=== PATIENT | male | born 2000 | race Caucasian/White ===

== ENCOUNTER 2024-05-05 12:42 | Emergency (ER) | payer OTHER, BC, SELFPAY ==
[2024-05-05 12:55] VITALS: BP 120/75; PULSE 64; TEMP 36.6; O2SAT 98; BMI 30.3
--- NOTE | 2024-05-05 16:14 | W.ED.EYEPROB ---
HPI - Eye Problem General: Chief complaint: Eye Problems Stated complaint: L eye pain Time Seen by Provider: 05/05/24 15:55 History of Present Illness: 24-year-old male patient comes in today with foreign body in the left eye. Patient reports for about 1 week he has had a discomfort of a foreign body in his eye. Patient was seen in the emergency department at [facility] for removal of eye foreign body at that time. Patient was discharged home with recommendation for follow-up. Patient states that he continues to have the discomfort in his eye but has had no improvement of symptoms. Patient appears nontoxic. 1 can visualize the foreign body in the left eye at the 9 o'clock position at the edge of the iris. Related Data Allergies Allergy/AdvReac Type Severity Reaction Status Date / Time No Known Allergies Allergy Verified 05/05/24 13:02 Review of Systems General: Reports: 10 or more systems reviewed and unremarkable except in HPI and below Physical Exam Const: COMMON NORMALS: alert HENMT: HEAD & SCALP: normal to inspection Eye: COMMON NORMALS: Equal, round and reactive pupils present, EOMs intact bilaterally and conjunctivae normal CONJUNCTIVA: Yes conjunctivae normal CORNEA: Yes other (Foreign body, speck of brown material, 9:00 left eye) PUPIL: Yes Equal, round and reactive pupils present Neck/C-Spine: COMMON NORMALS: full ROM Resp: COMMON NORMALS: normal respiratory effort Cardio: COMMON NORMALS: regular rate RATE: regular rate GI: COMMON NORMALS: non-tender Extremity: COMMON NORMALS: capillary refill normal Neuro: SENSORIUM/ORIENTATION: Yes alert Skin: COMMON NORMALS: turgor normal GENERAL SKIN EXAM: turgor normal Procedures FB Removal Eye Location: eye (L) Topical anesthetic used: tetracaine Foreign body: metal Evidence of corneal penetration: No Technique: needle Procedure performed under: direct visualization with magnification Post-procedure medication: ophthalmic antibiotic Patient tolerated procedure: well Complications: other (No complications) Course Vital Signs: Vital signs: Vital Signs Temperature 97.9 F 05/05/24 12:55 Pulse Rate 64 05/05/24 12:55 Blood Pressure 120/75 05/05/24 12:55 Pulse Oximetry 98 05/05/24 12:55 Oxygen Delivery Me thod Room Air 05/05/24 12:55 MDM - Eye Problem Medical Decision Making 24-year-old male patient comes in today with a foreign body in the left eye. Patient reports symptoms for about 1 to 2 weeks. Patient has been seen at outside facility and was told that the foreign body was removed. Patient has yet to follow-up with eye occasional caregiver. A small speck of rust was noted in the left eye at the 9 o'clock position at the edge of the iris. Differential diagnosis corneal ulceration, corneal abrasion, corneal laceration, foreign body cornea. Foreign body was able to be removed with level of 22-gauge needle. Patient tolerated well. Patient was placed on antibiotic eyedrops to use for the next 7 days. Patient was instructed to follow-up with eye occasional caregiver in 3 days for recheck. No radiology studies performed this visit Discharge Plan Discharge Patient Disposition: Home Clinical Impression: Foreign body in cornea, left eye, initial encounter Condition: Stable Discharge Orders: Discharge ED (Routine); Ordered 05/05/24 Ordered By: Edwardo Ospina Discharge Diet: Usual diet Discharge Activity: Increase activity as tolerated Patient Instructions: Eye Foreign Body (ED) Activity Restrictions/Additional Instructions: Use antibiotic eyedrops 1 drop every 4 hours while awake for the next 7 days. Follow-up with eye occasional caregiver in 2 to 3 days for recheck. Return to ED for new concerns. Print Language: Yoruba Coding Level of Care Code ED Center Line Cutter Operator for Remi Archuleta
[2024-05-05] MEDS: neomycin-poly-dex Op 5 mL Btl 2 DROP EYE-LEFT (16:15)
[2024-05-05] MEDS: tetracaine 0.5% Op Soln 4 mL Btl 1 DROP EYE-LEFT (16:15)
[2024-05-05 16:41] VITALS: BP 122/70; PULSE 67; O2SAT 98
== END 2024-05-05 16:20 | disposition home or self-care (01) ==
PROVIDERS: Emergency Provider Nurse Practitioner Family
DX: T15.02XA Foreign body in cornea, left eye, initial encounter (principal); X58.XXXA Exposure to other specified factors, initial encounter
CPT/HCPCS: 65220; 99283; J9999